=== PATIENT | female | born 1950 | race Caucasian/White ===

== ENCOUNTER 2017-04-20 23:58 | Inpatient (IN) | payer BC, OTHER ==
[2017-04-21 00:22] VITALS: BMI 21.1
[2017-04-21] MEDS ORDERED: SODIUM CHLORIDE 1,000 ML IV STA ×2 (01:27→03:20)
--- NOTE | 2017-04-21 01:32 | PDOC ---
History of Present Illness - General History Source: Patient Exam Limitations: No Limitations - History of Present Illness Initial Comments: 04/21/17 01:46 The patient is a 67 year old female with a significant PMH of ulcerative colitis status post jpouch with inability to pull-though (has anastamosis to RLQ , pt uses catheter) with recurrent small bowel obstruction 2/2 intestinal stricture near operative site who presents to the emergency department with crampy abdominal pain and bloating today c/w prior episodes of SBO. The patient states these symptoms happens intermittently when she is dehydrated and usually resolve on its own or after IV fluids. The patient reports she was discharged from [place] from 2 weeks ago for similar symptoms. The patient denies chest pain, shortness of breath, headache and dizziness. Denies fever, chills, nausea, vomit, diarrhea and constipation. Denies dysuria, frequency, urgency and hematuria. Allergies: NKA Past surgical history: jpouch placement Social history: No reported alcohol, drug or cigarette use. PCP: Dr. Fraire <Santa Jain - Last Filed: 04/21/17 01:46> <Cammie Silverio - Last Filed: 04/21/17 05:54> - General Chief Complaint: Pain Stated Complaint: STOMACH PAIN Time Seen by Provider: 04/21/17 01:17 Past History <Santa Jain - Last Filed: 04/21/17 01:46> - Past Medical History COPD: No GI Disorders: Yes (ULCERATIVE COLITIS) - Surgical History Abdominal Surgery: Yes (ILIOSTOMY KOUCH POUCH) - Suicide/Smoking/Psychosocial Hx Smoking History: Never smoked Have you smoked in the past 12 months: No Information on smoking cessation initiated: No Hx Alcohol Use: No Drug/Substance Use Hx: No Substance Use Type: None <Cammie Silverio - Last Filed: 04/21/17 05:54> - Past Medical History Allergies/Adverse Reactions: Allergies Allergy/AdvReac Type Severity Reaction Status Date / Time No Known Drug Allergies Allergy Verified 04/21/17 00:19 tetracycline [Tetracycline] AdvReac Intermediate Verified 04/21/17 00:19 Review of Systems - Review of Systems Able to Perform ROS?: Yes Comments:: 04/21/17 01:47 See HPI. All other systems reviewed and unremarkable. <Santa Jain - Last Filed: 04/21/17 01:46> *Physical Exam - Vital Signs Last Vital Signs Temp Pulse Resp BP Pulse Ox 97.8 F 85 20 140/71 96 04/21/17 00:19 04/21/17 00:19 04/21/17 00:19 04/21/17 00:19 04/21/17 00:19 - Physical Exam Comments: 04/21/17 01:47 GENERAL: Awake, alert, and fully oriented, in no acute distress HEENT: EOMI, GERARD MMM, OP WNL NECK: NCAT, no midline cervical tenderness CARDIOVASCULAR: RRR, nl s1/s2, no m/r/g LUNGS: CTABL, no w/r/r ABDOMEN: Soft, diffuse lower abd ttp w/ voluntary guarding, no rebound. Catherization site c/d/i, no erythema/exudate. EXTREMITIES: No edema, WWP, no rash NEURO: Neuro grossly intact, gait WNL, moving all 4. A&O x 3, mood/affect WNL. SKIN: Warm, Dry, normal turgor, no rashes or lesions noted. <Santa Jain - Last Filed: 04/21/17 01:46> - Vital Signs Last Vital Signs Temp Pulse Resp BP Pulse Ox 97.8 F 85 20 140/71 96 04/21/17 00:19 04/21/17 00:19 04/21/17 00:19 04/21/17 00:19 04/21/17 00:19 <Cammie Silverio - Last Filed: 04/21/17 05:54> ED Treatment Course - LABORATORY CBC & Chemistry Diagram: 04/21/17 02:05 04/21/17 02:05 - RADIOLOGY Radiology Studies Ordered: Category Date Time Status ABDOMEN FLAT & UPRIGHT [RAD] Stat Radiology 04/21/17 01:27 Ordered <Cammie Silverio - Last Filed: 04/21/17 05:54> Medical Decision Making - Medical Decision Making 04/21/17 01:28 67yoF hx of ulcerative colitis s/p jpouch w/ inability to pull-though (has anastamosis to RLQ and pt catheterizes for stool) w/ hx of recurrent SBO from intestinal stricture near operative site presents w/ sxs concerning for same. DC 'ed 2 weeks ago from [facility] for same. Usually responds to conservative management. - labs - AXR - IVF - reeval. 04/21/17 05:54 AXR w/ SBO. admit. <Cammie Silverio - Last Filed: 04/21/17 05:54> *DC/Admit/Observation/Transfer - Attestations Scribe Attestion: 04/21/17 01:48 Documentation prepared by Santa Jain, acting as medical biller for Cammie Silverio MD. <Santa Jain - Last Filed: 04/21/17 01:46> - Discharge Dispostion Admit: Yes <Cammie Silverio - Last Filed: 04/21/17 05:54> - Discharge Dispostion Condition at time of disposition: Stable - Referrals Referrals: Jose Daniel Gross MD [Primary Care Provider] - - Patient Instructions - Post Discharge Activity
[2017-04-21 02:21] LABS: BASO % 0.7 % (0-2.0); EOS % 1.1 % (0-4.5); HEMATOCRIT 41.1 % (32.4-45.2); HEMOGLOBIN 13.6 GM/dL (10.7-15.3); LYMPH % 16.7 % (8-40); MCH 30.8 pg (25.7-33.7); MCHC 33.1 g/dl (32.0-36.0); MEAN PLT VOLUME 9.9 fl (7.5-11.1); MONO % 9.2 % (3.8-10.2); NEUT % 72.3 % (42.8-82.8); PLATELET COUNT 204 K/MM3 (134-434); RBC 4.42 M/mm3 (3.60-5.2); RDW 13.6 % (11.6-15.6); WHITE BLOOD COUNT 7.3 K/mm3 (4.0-10.0)
[2017-04-21 02:46] LABS: ALBUMIN 3.4 g/dl (3.4-5.0); ALK PHOS 69 U/L (45-117); ANION GAP 7 (8-16); BILIRUBIN,TOTAL 0.7 mg/dL (0.2-1.0); BLOOD UREA NITROGEN 8 mg/dL (7-18); CALCIUM 9.5 mg/dL (8.5-10.1); CHLORIDE 108 mmol/L (98-107); CO2 28 mmol/L (21-32); CREATININE 0.5 mg/dL (0.55-1.02); GLUCOSE,RANDOM 94 mg/dL (74-106); SGPT/ALT 22 U/L (12-78); SODIUM 143 mmol/L (136-145); TOT PROT 6.8 g/dl (6.4-8.2)
[2017-04-21 02:47] LABS: POTASSIUM 4.2 mmol/L (3.5-5.1); SGOT/AST 25 U/L (15-37)
--- NOTE | 2017-04-21 06:42 | HP ---
Admitting History and Physical - Primary Care Physician PCP: Jose Daniel Gross - Admission Chief Complaint: abdominal discomfort History of Present Illness: 67 yo lady with h/o total colectomy for ulcerative colitis 30 years ago with ileal pouch long h/o intermittent partial bowel obstruction and associated dehydration which were handled conservatively with iv fluid and bowel rest has had specialist in [place] but was unable to afford him, currently looking for new. was admitted to [facility] 3 weeks ago for similar complaints, dcd after five days, but her bowels never really normalized afterwards now she comes in with increasing abdominal discomfort loss of appetite and minimal output from pouch, mostly mucous. History Source: Patient Limitations to Obtaining History: No Limitations - Past Medical History Gastrointestinal: Yes: Ulcerative Colitis - Past Surgical History Past Surgical History: Yes: Colectomy (total colectomy with jo puch creation approx.30 yrs ago), Tonsillectomy - Smoking History Smoking history: Never smoked Have you smoked in the past 12 months: No - Alcohol/Substance Use Hx Alcohol Use: No - Social History ADL: Independent History of Recent Travel: No Home Medications - Allergies Allergies/Adverse Reactions: Allergies Allergy/AdvReac Type Severity Reaction Status Date / Time No Known Drug Allergies Allergy Verified 04/21/17 00:19 tetracycline [Tetracycline] AdvReac Intermediate Verified 04/21/17 00:19 Family Disease History - Family Disease History Family Disease History: Heart Disease: Mother (HTN) Review of Systems - Review of Systems Constitutional: reports: Loss of Appetite. denies: Fever, Lethargy HENT: reports: No Symptoms Cardiovascular: reports: No Symptoms Respiratory: reports: PND Gastrointestinal: reports: Abdominal Pain, Bloating, Other (usually uses catheter to releive herself, with minimal output last couple days) Genitourinary: reports: No Symptoms Musculoskeletal: reports: No Symptoms Neurological: reports: No Symptoms Physical Examination Vital Signs: Vital Signs Temperature 97.8 F 04/21/17 00:19 Pulse Rate 85 04/21/17 00:19 Respiratory Rate 20 04/21/17 00:19 Blood Pressure 140/71 04/21/17 00:19 O2 Sat by Pulse Oximetry (%) 96 04/21/17 00:19 Constitutional: Yes: Well Nourished, No Distress, Calm Eyes: Yes: Conjunctiva Clear HENT: Yes: Normocephalic, Other (dry mouth) Cardiovascular: Yes: Regular Rate and Rhythm Respiratory: Yes: Regular, CTA Bilaterally Gastrointestinal: Yes: Normal Bowel Sounds, Hyperactive Bowel Sounds, Tenderness (diffuse mild, no rebound, no guarding), Other (pouch opening no eryhtema, no discharge) Musculoskeletal: Yes: WNL Extremities: Yes: WNL Labs: CBC, BMP 04/21/17 02:05 04/21/17 02:05 Imaging - Results X-ray: Image Reviewed Problem List - Problems (1) Intermittent small bowel obstruction Code(s): K56.609 - UNSP INTESTNL OBST, UNSP TO PARTIAL VERSUS COMPLETE OBST Assessment/Plan hopefully will resolve with conservative management iv fluids keep NPO iv levaquin GI/surgical eval check stool cultures
[2017-04-21] MEDS: D5-1/2NS+10 MEQ KCL - 10 MEQ/1,000 ML INFUS.BAG IV SCH ×2 (10:06→23:29)
--- NOTE | 2017-04-21 12:05 | CON.GI ---
Consult Consult Specialty:: GI: Dr. Lopes coveing for Dr. Sparks Referred by:: Dr. Maggie Gross Reason for Consultation:: Small Bowel Obstruction - History of Present Illness Chief Complaint: Abdominal Pain History of Present Illness: 67F admitted for evaluation of mid abdominal pain. She has a history of ulcerative colitis, followed previously at [facility] by Dr. Gee Shelton. She had a total proctocolectomy with Kock pouch "many years ago". last endoscopic evaluation of Kock pouch [address] Aguilar Recently admitted for [facility] for SBO per ER note and H&P. Treated conservativly. Ms. Viramontes states that she has had similar episodes in the past, has been told of a "scar where they created the kock pouch" but has never had revisionary surgery. She says that she passes a catheter through the stoma of the kock pouch to facilitate bowel movements and this last occurred yesterday. She denies nausea/vomiting. Triage vitals revealed T: 97.8 P: 85 BP : 140/71. AXR was performed revealing ? SBO. - History Source History Provided By: Patient, Medical Record Limitations to Obtaining History: No Limitations - Past Medical History Gastrointestinal: Yes: Ulcerative Colitis - Past Surgical History Past Surgical History: Yes: Colectomy (total colectomy with kock puch creation approx.30 yrs ago), Tonsillectomy - Alcohol/Substance Use Hx Alcohol Use: No History of Substance Use: reports: None - Smoking History Smoking history: Never smoked Have you smoked in the past 12 months: No - Social History Usual Living Arrangement: With Spouse ADL: Independent Occupation: Retired: worked in [employer] Place of : Other ([place]) Came to [place] (year[place] age 23 History of Recent Travel: No Home Medications - Allergies Allergies/Adverse Reactions: Allergies Allergy/AdvReac Type Severity Reaction Status Date / Time No Known Drug Allergies Allergy Verified 04/21/17 00:19 tetracycline [Tetracycline] AdvReac Intermediate Verified 04/21/17 00:19 Family Disease History - Family Disease History Family Disease History: Heart Disease: Mother (: 87: CVA, HTN), Other: Father (: 74: Stomach cancer), Brother (1, healthy), Sister (1, healthy), Son (None), Daughter (None) Other Family History: No family history of colorectal cancer Review of Systems - Review of Systems Constitutional: denies: Chills Cardiovascular: denies: Chest Pain Respiratory: denies: SOB Gastrointestinal: reports: Abdominal Pain, Bloating, Diarrhea (generally has loose bowel movements). denies: Constipation, Dysphagia, Indigestion, Nausea, Vomiting, Vomiting Blood Physical Exam-GI Vital Signs: Vital Signs Temperature 98 F 04/21/17 07:50 Pulse Rate 93 H 04/21/17 09:36 Respiratory Rate 18 04/21/17 11:00 Blood Pressure 149/99 04/21/17 09:36 O2 Sat by Pulse Oximetry (%) 98 04/21/17 11:00 Constitutional: Yes: Calm Eyes: No: Sclera Icterus Cardiovascular: Yes: Regular Rate and Rhythm Respiratory: Yes: CTA Bilaterally Gastrointestinal Inspection: Yes: Distention (protuberant), Scars (midline abdominal scar. + stoma in right mid/lower abdomen.) ...Auscultate: Yes: Normoactive Bowel Sounds ...Palpate: Yes: Soft, Tenderness (Mild TTP mid abdomen). No: Hepatomegaly, Splenomegaly, Tenderness, Rebound ...Percussion: Yes: Tympanitic (Mild mid abdominal tympany) Edema: No (No LE edema) Neurological: Yes: Alert, Oriented Labs: CBC, BMP 04/21/17 02:05 04/21/17 02:05 Hepatic Panel Total Bilirubin 0.7 mg/dL (0.2-1.0) 04/21/17 02:05 AST 25 U/L (15-37) 04/21/17 02:05 ALT 22 U/L (12-78) 04/21/17 02:05 Alkaline Phosphatase 69 U/L (45-117) 04/21/17 02:05 Albumin 3.4 g/dl (3.4-5.0) 04/21/17 02:05 Imaging - Results X-ray: Report Reviewed Problem List - Problems (1) Intermittent small bowel obstruction Assessment/Plan: By Ms. Viramontes's descrition of what has caused her intermittent obstructions in the past stenosis / stricturing of the internal anastamosis of her kock pouch would need to be considered as causative process in the differential along with other etiologioes such as adhesions She is NPO with IV hydration and was being evaluated by Dr. Ross of surgery I have ordered a CT scan of the abdomen and pelvis with PO and IV contrast. If there are signs suggestive of significant SBO, consideration should be given for transfer to her IBD center [facility] for evaluation and further treatment. If her clinical condition improves with conservative management, she will need outpatient follow-up at [facility] for continued evaluation. Her has already called Dr. Shelton's office to arrange outpatient follow-up. If vomiting, worsening abdominal tube, would consider NGT placement Code(s): K56.609 - UNSP INTESTNL OBST, UNSP TO PARTIAL VERSUS COMPLETE OBST
--- NOTE | 2017-04-21 16:01 | PN ---
Progress Note (short form) - Note Progress Note: For Dr. Sparks Nurse called: Ms. Viramontes refused CT scan when gdown in radiology. I spoke with both her and phone via telephone today. They expressed concern about having another CT scan as she had one two weeks ago at [facility]. The also brought the disc with CT scan result from [place]. I explained that not having her previous work-up here and having most of her medical care at [facility], A repeat CT scan would be prudent to 1. compare results from previous CT scan ie. eval for progession of SBO as an example and 2. To exclude alternate etiologies of her abdominal pain. I explained by not having current imaging, I am limited as to what I can comment on or recommend regarding her abdominal pain and previous diagnosis of ? SBO and that this can hinder her care and disposition. They were made aware that progressive small bowel obstruction or alternate pathology could be potentially life threatening. After discussion they stll refused the CT scan. I discussed this decision with Dr. Maggie Gross who would told me she would discuss things further with the patient and her . Problem List - Problems (1) Intermittent small bowel obstruction Code(s): K56.609 - UNSP INTESTNL OBST, UNSP TO PARTIAL VERSUS COMPLETE OBST
--- NOTE | 2017-04-21 16:07 | CONSULT ---
Consult Consult Specialty:: Surgery Reason for Consultation:: Rule out bowel obstruction - History of Present Illness Chief Complaint: Abdominal cramping - History Source History Provided By: Patient, Medical Record Limitations to Obtaining History: No Limitations - Past Medical History Gastrointestinal: Yes: Ulcerative Colitis - Past Surgical History Past Surgical History: Yes: Colectomy (total colectomy with kock puch creation approx.30 yrs ago), Tonsillectomy - Alcohol/Substance Use Hx Alcohol Use: No History of Substance Use: reports: None - Smoking History Smoking history: Never smoked Have you smoked in the past 12 months: No - Social History Usual Living Arrangement: With Spouse ADL: Independent Occupation: Retired: worked in research lab for [employer] History of Recent Travel: No Home Medications - Allergies Allergies/Adverse Reactions: Allergies Allergy/AdvReac Type Severity Reaction Status Date / Time No Known Drug Allergies Allergy Verified 04/21/17 00:19 tetracycline [Tetracycline] AdvReac Intermediate Verified 04/21/17 00:19 Family Disease History - Family Disease History Family Disease History: Heart Disease: Mother (: 87: CVA, HTN), Other: Father (: 74: Stomach cancer), Brother (1, healthy), Sister (1, healthy), Son (None), Daughter (None) Other Family History: No family history of colorectal cancer Review of Systems - Review of Systems Constitutional: denies: Chills, Fever Neck: reports: No Symptoms Gastrointestinal: reports: Abdominal Pain. denies: Diarrhea, Dysphagia Pain Intensity: 3 Physical Exam Vital Signs: Vital Signs Temperature 97.8 F 04/21/17 14:31 Pulse Rate 79 04/21/17 14:31 Respiratory Rate 18 04/21/17 11:00 Blood Pressure 114/60 04/21/17 14:31 O2 Sat by Pulse Oximetry (%) 98 04/21/17 11:00 Neck: Yes: WNL Cardiovascular: Yes: WNL Respiratory: Yes: Regular Gastrointestinal: Yes: Soft, Distention (Minimal). No: Tenderness, Tenderness, Rebound Neurological: Yes: Alert, Oriented Labs: CBC, BMP 04/21/17 02:05 04/21/17 02:05 Imaging - Results X-ray: Report Reviewed, Image Reviewed Cat Scan: Pending Problem List - Problems (1) Intermittent small bowel obstruction Code(s): K56.609 - UNSP INTESTNL OBST, UNSP TO PARTIAL VERSUS COMPLETE OBST Assessment/Plan 67 female s/p total colectomy with ileal pouch in the past Has had intermiitent episodes of bowel obstruction Recently at [facility] Tolerating diet +Output via ileal pouch CT A/P Serial abdominal exams
--- NOTE | 2017-04-22 07:33 | PN ---
Progress Note (short form) - Note Progress Note: Feels better, moving some bowel material, hungry Vital Signs Period Temp Pulse Resp BP Sys/Sawant Pulse Ox Last 24 Hr 97.5 F-98.5 F 74-93 14-20 112-149/60-99 98-98 S1S2 RRR lungs cta abd soft mild tenderness, no rebound, no guarding no edema small bowel obstruction h/o colectomy with pouch trial of liquids cont iv fluids will follow consults appreciated pt does not want ct at this point, agreed that should condition worsen will reconsider Problem List - Problems (1) Intermittent small bowel obstruction Code(s): K56.609 - UNSP INTESTNL OBST, UNSP TO PARTIAL VERSUS COMPLETE OBST
[2017-04-22 08:15] LABS: BASO % 0.3 % (0-2.0); EOS % 2.7 % (0-4.5); HEMATOCRIT 39.7 % (32.4-45.2); HEMOGLOBIN 13.2 GM/dL (10.7-15.3); MCH 30.9 pg (25.7-33.7); MCHC 33.2 g/dl (32.0-36.0); MEAN PLT VOLUME 9.4 fl (7.5-11.1); MONO % 10.1 % (3.8-10.2); NEUT % 55.9 % (42.8-82.8); PLATELET COUNT 185 K/MM3 (134-434); RBC 4.26 M/mm3 (3.60-5.2); RDW 13.7 % (11.6-15.6); WHITE BLOOD COUNT 6.2 K/mm3 (4.0-10.0)
[2017-04-22 08:34] LABS: ALBUMIN 3.1 g/dl (3.4-5.0); ANION GAP 11 (8-16); BLOOD UREA NITROGEN 5 mg/dL (7-18); CALCIUM 8.7 mg/dL (8.5-10.1); CHLORIDE 106 mmol/L (98-107); CO2 25 mmol/L (21-32); GLUCOSE,RANDOM 110 mg/dL (74-106); POTASSIUM 3.9 mmol/L (3.5-5.1); SODIUM 142 mmol/L (136-145)
[2017-04-22 08:38] LABS: ALK PHOS 62 U/L (45-117); BILIRUBIN,TOTAL 1.1 mg/dL (0.2-1.0); CREATININE 0.6 mg/dL (0.55-1.02); SGOT/AST 15 U/L (15-37); SGPT/ALT 16 U/L (12-78); TOT PROT 6.2 g/dl (6.4-8.2)
[2017-04-22] MEDS: D5-1/2NS+10 MEQ KCL - 10 MEQ/1,000 ML INFUS.BAG IV SCH ×2 (11:10→21:17)
--- NOTE | 2017-04-22 12:55 | PN ---
GI Progress Note Subjective: GI NOte: Autumn tells me that she preferred her [place]'s ileostomy which was not prone to these episodes. She denies vomiting or pain but has some bloating discomfort. Agree with trial of liquids and would advance diet as tolerated. If her symptoms recurs I have advised an ileoscopy for Thursday. If she improves then she can be discharged and followup in our office. - Objective Vital Signs: Vital Signs Temperature 97.7 F 04/22/17 08:00 Pulse Rate 70 04/22/17 08:00 Respiratory Rate 04/22/17 08:00 Blood Pressure 141/75 04/22/17 08:00 O2 Sat by Pulse Oximetry (%) 97 04/22/17 09:00 Laboratory Tests 04/22/17 04/22/17 06:45 06:45 WBC 6.2 BUN 5 L Creatinine 0.6 Albumin 3.1 L Constitutional: Calm Gastrointestinal Inspection: Yes: Distention (soft) ...Auscultate: Yes: Hyperactive Bowel Sounds ...Palpate: Yes: Soft, Other (nontender) ...Percussion: Yes: Tympanitic Labs: CBC, BMP 04/22/17 06:45 04/22/17 06:45 Problem List - Problems (1) Pouchitis Assessment/Plan: Resolving pouchitis and obstruction. Advance diet as tolerated. If pain worsens will schedule ileoscopy Code(s): K91.850 - POUCHITIS
[2017-04-23] MEDS: D5-1/2NS+10 MEQ KCL - 10 MEQ/1,000 ML INFUS.BAG IV SCH ×2 (07:11→17:49)
--- NOTE | 2017-04-23 08:41 | PN ---
Progress Note (short form) - Note Progress Note: Feels better, moving some bowel material, some discomfort with clear liquids Vital Signs Period Temp Pulse Resp BP Sys/Sawant Pulse Ox Last 24 Hr 97.9 F-98.4 F 66-86 18-20 104-134/66-83 97-98 S1S2 RRR lungs cta abd soft minimal tenderness, no rebound, no guarding no edema small bowel obstruction h/o colectomy with pouch continue liquids cont iv fluids advance diet little later consults appreciated pt does not want ct at this point, agreed that should condition worsen will reconsider Problem List - Problems (1) Intermittent small bowel obstruction Code(s): K56.609 - UNSP INTESTNL OBST, UNSP TO PARTIAL VERSUS COMPLETE OBST
--- NOTE | 2017-04-23 09:36 | PN ---
GI Progress Note Subjective: For Dr. Sparks: States feeling ok. some cramps and describes liquid stool with particles coming from ileostomy when she catheterizes it. CT scan report from [facility]: 04/06/17: S/P total colectomy w/ RLQ ileostomyand kock pouch. Proximal to pouch = multiple dilated loops of small bowel c/w SBO. A transition point in the mid/lower abdomen described proximal to the kock pouch. Tolerating clears - Objective Vital Signs: Vital Signs Temperature 98.2 F 04/23/17 08:00 Pulse Rate 72 04/23/17 08:00 Respiratory Rate 18 04/23/17 08:00 Blood Pressure 119/66 04/23/17 08:00 O2 Sat by Pulse Oximetry (%) 98 04/23/17 08:40 Constitutional: Calm Eyes: No: Sclera Icterus Cardiovascular: Yes: Regular Rate and Rhythm Respiratory: Yes: CTA Bilaterally Gastrointestinal Inspection: No: Distention ...Auscultate: Yes: Normoactive Bowel Sounds ...Palpate: Yes: Soft, Tenderness (Mild TTP mid/lower abdomen, no guarding/ rebound) ...Percussion: No: Tympanitic Edema: No (No LE edema) Neurological: Yes: Alert, Oriented Labs: CBC, BMP 04/22/17 06:45 04/22/17 06:45 - ....Imaging Cat Scan: Report Reviewed (Report of CT scan 04/06/17 performed at [facility]) Problem List - Problems (1) Intermittent small bowel obstruction Assessment/Plan: SBO. ? if related to adhesions from surgery (transition point described as proximal to kock pouch in mid/lower abdomen) Continue clears Patient refused repeat CT scan to assess for progression of SBO On IV Abx for ? pouchitis. NPO after midnight for possible ileoscopy. Ms. Viramontes said that she would see how she feels and think about it tomorrow morning before making decision. NPO after midnight Code(s): K56.609 - UNSP INTESTNL OBST, UNSP TO PARTIAL VERSUS COMPLETE OBST
--- NOTE | 2017-04-23 13:22 | PN ---
Progress Note (short form) - Note Progress Note: No acute events Pain improves + output via ostomy Vital Signs Period Temp Pulse Resp BP Sys/Sawant Pulse Ox Last 24 Hr 97.9 F-98.4 F 66-86 18-20 104-134/66-83 98-98 Abd soft, NT CBC, BMP 04/22/17 06:45 04/22/17 06:45 Ileoscopy per GI Serial abdominal exams Problem List - Problems (1) Intermittent small bowel obstruction Code(s): K56.609 - UNSP INTESTNL OBST, UNSP TO PARTIAL VERSUS COMPLETE OBST
[2017-04-24] MEDS: D5-1/2NS+10 MEQ KCL - 10 MEQ/1,000 ML INFUS.BAG IV SCH ×3 (04:37→18:10)
[2017-04-24 07:23] LABS: BASO % 0.7 % (0-2.0); EOS % 3.5 % (0-4.5); HEMATOCRIT 39.1 % (32.4-45.2); LYMPH % 35.2 % (8-40); MCH 31.2 pg (25.7-33.7); MCHC 33.4 g/dl (32.0-36.0); MEAN CELL VOLUME 93.6 fl (80-96); MEAN PLT VOLUME 9.2 fl (7.5-11.1); MONO % 10.7 % (3.8-10.2); NEUT % 49.9 % (42.8-82.8); PLATELET COUNT 184 K/MM3 (134-434); RBC 4.17 M/mm3 (3.60-5.2); RDW 13.4 % (11.6-15.6); WHITE BLOOD COUNT 4.8 K/mm3 (4.0-10.0)
[2017-04-24 07:51] LABS: ALBUMIN 3.5 g/dl (3.4-5.0); ANION GAP 7 (8-16); BLOOD UREA NITROGEN 5 mg/dL (7-18); CALCIUM 8.3 mg/dL (8.5-10.1); CHLORIDE 107 mmol/L (98-107); CO2 29 mmol/L (21-32); CREATININE 0.6 mg/dL (0.55-1.02); GLUCOSE,RANDOM 99 mg/dL (74-106); POTASSIUM 3.8 mmol/L (3.5-5.1); SGOT/AST 14 U/L (15-37); SGPT/ALT 15 U/L (12-78); SODIUM 143 mmol/L (136-145)
[2017-04-24 07:53] LABS: ALK PHOS 60 U/L (45-117); BILIRUBIN,TOTAL 0.7 mg/dL (0.2-1.0); TOT PROT 6.6 g/dl (6.4-8.2)
--- NOTE | 2017-04-24 09:09 | PN ---
Progress Note (short form) - Note Progress Note: CBC, BMP 04/24/17 06:57 04/24/17 06:57 Vital Signs Period Temp Pulse Resp BP Sys/Sawant Pulse Ox Last 24 Hr 97.9 F-99.4 F 68-81 18-21 116-133/62-79 97-98 S1S2 RRR lungs cta abd soft minimal tenderness, no rebound, no guarding no edema small bowel obstruction h/o colectomy with pouch NPO for ilieoscopy this am cont iv fluids advance diet after procedure depending results consults appreciated clyde deluca Problem List - Problems (1) Intermittent small bowel obstruction Code(s): K56.609 - UNSP INTESTNL OBST, UNSP TO PARTIAL VERSUS COMPLETE OBST
--- NOTE | 2017-04-24 16:57 | PN ---
Progress Note (short form) - Note Progress Note: GI Procedure Note: Please see ileoscopy report. There is pouchitis with narrowing of a short segment with was dilated with the scope. Will advance diet. If tolerated can discharge on Cortenemas BID ( until office visit) and Ciprofloxacin 500mg BID x 2 weeks. Problem List - Problems (1) Pouchitis Code(s): K91.850 - POUCHITIS
[2017-04-24] MEDS ORDERED: PT OWN MED DRAWER 7, Y5N ONE (17:52)
--- NOTE | 2017-04-24 18:05 | PN ---
Progress Note (short form) - Note Progress Note: No acute events S/p ileoscopy- pouchitis +BM Vital Signs Period Temp Pulse Resp BP Sys/Sawant Pulse Ox Last 24 Hr 97.8 F-98.8 F 68-84 14-21 116-152/62-90 97-99 CBC, BMP 04/24/17 06:57 04/24/17 06:57 Diet as tolerated Recommend follow up with IBD specialist at [place] Problem List - Problems (1) Intermittent small bowel obstruction Code(s): K56.609 - UNSP INTESTNL OBST, UNSP TO PARTIAL VERSUS COMPLETE OBST
[2017-04-24] MEDS ORDERED: HYDROCORTISONE 100 MG/60 ML RECTAL ENEMA RC SCH (22:00)
[2017-04-25] MEDS: D5-1/2NS+10 MEQ KCL - 10 MEQ/1,000 ML INFUS.BAG IV SCH (05:00)
[2017-04-25] MEDS ORDERED: CIPROFLOXACIN 500 MG TABLET (RESTRICTED TO ID) PO SCH (10:00)
--- NOTE | 2017-04-25 10:10 | PN ---
Progress Note (short form) - Note Progress Note: still unable to move the bm no abd pain weakness present Vital Signs Period Temp Pulse Resp BP Sys/Sawant Pulse Ox Last 24 Hr 97.8 F-98.4 F 66-84 14-20 103-152/46-90 97-99 CBC, BMP 04/24/17 06:57 04/24/17 06:57 S1S2 RRR lungs cta abd soft minimal tenderness, no rebound, no guarding no edema small bowel obstruction h/o colectomy with pouch NPO for ilieoscopy this am cont iv fluids
[2017-04-25] MEDS: HYDROCORTISONE 100 MG/60 ML RECTAL ENEMA RC SCH ×2 (10:24→21:29)
[2017-04-25] MEDS: POLYETHYLENE GLYCOL 3350 119 GM BTL PO SCH (10:24)
[2017-04-25] MEDS: POTASSIUM CHLORIDE 10 MEQ in DEXTROSE 5%-0.45% SALINE 1,000 ML IVPB SCH (17:07)
--- NOTE | 2017-04-25 19:42 | PN ---
Progress Note (short form) - Note Progress Note: No acute events Increased output via ostomy after dilation On diet Vital Signs Period Temp Pulse Resp BP Sys/Sawant Pulse Ox Last 24 Hr 97.8 F-98.6 F 66-82 16-20 103-149/46-72 99-99 Abd soft CBC, BMP 04/24/17 06:57 04/24/17 06:57 Diet as tolerated Problem List - Problems (1) Intermittent small bowel obstruction Code(s): K56.609 - UNSP INTESTNL OBST, UNSP TO PARTIAL VERSUS COMPLETE OBST
[2017-04-25] MEDS ORDERED: PT OWN MED DRAWER 7, Y5N ONE (21:15)
[2017-04-26] MEDS: POTASSIUM CHLORIDE 10 MEQ in DEXTROSE 5%-0.45% SALINE 1,000 ML IVPB SCH ×5 (03:49→21:43)
[2017-04-26] MEDS ORDERED: PT OWN MED DRAWER 7, Y5N ONE (09:45)
[2017-04-26] MEDS: POLYETHYLENE GLYCOL 3350 119 GM BTL PO SCH (09:46)
[2017-04-26] MEDS: HYDROCORTISONE 100 MG/60 ML RECTAL ENEMA RC SCH ×2 (09:47→21:43)
--- NOTE | 2017-04-26 12:09 | PN ---
Progress Note (short form) - Note Progress Note: still unable to move the bm no abd pain weakness present Vital Signs Vital Signs Period Temp Pulse Resp BP Sys/Sawant Pulse Ox Last 24 Hr 98.1 F-98.6 F 61-82 16-20 111-146/59-76 98-99 CBC, BMP 04/24/17 06:57 04/24/17 06:57 S1S2 RRR lungs cta abd soft minimal tenderness, no rebound, no guarding no edema small bowel obstruction h/o colectomy with pouch NPO for ilieoscopy this am cont iv fluids
[2017-04-27] MEDS: POTASSIUM CHLORIDE 10 MEQ in DEXTROSE 5%-0.45% SALINE 1,000 ML IVPB SCH ×4 (05:41→17:42)
--- NOTE | 2017-04-27 08:56 | PN ---
Progress Note (short form) - Note Progress Note: 04/24/17 06:57 04/24/17 06:57 Vital Signs Period Temp Pulse Resp BP Sys/Sawant Pulse Ox Last 24 Hr 98 F-98.3 F 73-103 18-20 105-130/59-75 96 S1S2 RRR lungs cta abd soft no tenderness, no rebound, no guarding no edema small bowel obstruction h/o colectomy with pouch ileoscopy showed pouchitis and stricture, s/p dilation check lytes on regular diet po levaquin cortenema miralax Problem List - Problems (1) Intermittent small bowel obstruction Code(s): K56.609 - UNSP INTESTNL OBST, UNSP TO PARTIAL VERSUS COMPLETE OBST
[2017-04-27] MEDS ORDERED: PT OWN MED DRAWER 7, Y5N ONE (09:56)
[2017-04-27 09:59] LABS: BASO % 0.6 % (0-2.0); EOS % 1.1 % (0-4.5); HEMATOCRIT 35.1 % (32.4-45.2); LYMPH % 26.3 % (8-40); MCH 31.6 pg (25.7-33.7); MCHC 34.1 g/dl (32.0-36.0); MEAN CELL VOLUME 92.7 fl (80-96); MEAN PLT VOLUME 9.5 fl (7.5-11.1); MONO % 11.8 % (3.8-10.2); NEUT % 60.2 % (42.8-82.8); PLATELET COUNT 160 K/MM3 (134-434); RBC 3.79 M/mm3 (3.60-5.2); RDW 13.7 % (11.6-15.6); WHITE BLOOD COUNT 5.8 K/mm3 (4.0-10.0)
[2017-04-27] MEDS: POLYETHYLENE GLYCOL 3350 119 GM BTL PO SCH (09:59)
[2017-04-27] MEDS: HYDROCORTISONE 100 MG/60 ML RECTAL ENEMA RC SCH (09:59)
[2017-04-27 10:32] LABS: ALBUMIN 3.1 g/dl (3.4-5.0); ANION GAP 7 (8-16); BLOOD UREA NITROGEN 10 mg/dL (7-18); CALCIUM 8.1 mg/dL (8.5-10.1); CHLORIDE 107 mmol/L (98-107); CO2 28 mmol/L (21-32); CREATININE 0.5 mg/dL (0.55-1.02); GLUCOSE,RANDOM 87 mg/dL (74-106); POTASSIUM 3.6 mmol/L (3.5-5.1); SGOT/AST 19 U/L (15-37); SGPT/ALT 23 U/L (12-78); SODIUM 142 mmol/L (136-145)
[2017-04-27 10:33] LABS: ALK PHOS 61 U/L (45-117); BILIRUBIN,TOTAL 0.4 mg/dL (0.2-1.0); TOT PROT 5.8 g/dl (6.4-8.2)
--- NOTE | 2017-04-27 10:35 | PATH ---
Surgical Pathology Report Patient Name: KELLI STEPHENS [facility]. Rec. #: [id number] /Age/Gender: 1950 (Age: 67) / F Account: [id number] Location: [address] [place] [address]/[facility] Taken: 04/24/2017 Received: 04/24/2017 Reported: 04/27/2017 Physicians: Jaja Barone M.D. Specimen(s) Received A: ANASTOMOSIS BIOPSY B: BX OSTOMY C: BX ILEUM 25 CM D: BX POUCH Clinical History Preoperative diagnosis: Small bowel obstruction status post ileostomy Postoperative diagnosis: Riwin's ileostomy for ulcerative colitis, rule out pouchitis Final Diagnosis A. COLON, ANASTOMOSIS, BIOPSY: COLONIC AND SMALL INTESTINAL MUCOSA WITH ULCERATION. NO DYSPLASIA IDENTIFIED. B. OSTOMY POSTANASTOMOSIS, BIOPSY: SMALL INTESTINAL MUCOSA WITH LAMINA PROPRIA EDEMA. NO ACTIVE INFLAMMATION, GRANULOMA, OR DYSPLASIA IDENTIFIED. C. ILEUM, 25 CM, BIOPSY: SMALL INTESTINAL MUCOSA WITH NO PATHOLOGIC CHANGES. NO ACTIVE INFLAMMATION, ARCHITECTURAL DISTORTION, GRANULOMAS, OR DYSPLASIA IDENTIFIED. D. ILEAL POUCH, BIOPSY: SMALL INTESTINAL MUCOSA WITH LAMINA PROPRIA EDEMA, AND PORTION OF ULCER BED. NO ARCHITECTURAL DISTORTION, GRANULOMA, OR DYSPLASIA IDENTIFIED. Comment: Recommend correlation with clinical findings and follow up as clinically indicated. Electronically Signed Carroll Lopez M.D. Gross Description A. Received in formalin, labeled "biopsy anastomosis" are 2 hernandez, irregular portions of soft tissue measuring 0.2 and 0.6 cm. in greatest dimension. The specimens are submitted in toto in one cassette. B. Received in formalin, labeled "biopsy ostomy" are 2 hernandez, irregular portions of soft tissue averaging 0.1 cm. in greatest dimension. The specimens are submitted in toto in one cassette. C. Received in formalin, labeled "biopsy ileum 25 cm" is a hernandez, irregular portion of soft tissue measuring 0.3 cm. in greatest dimension. The specimen is submitted in toto in one cassette. D. Received in formalin, labeled "biopsy pouch" are 2 hernandez, irregular portions of soft tissue averaging 0.4 cm. in greatest dimension. The specimens are submitted in toto in one cassette. 04/24/2017 saudi04/24/2017
--- NOTE | 2017-04-27 12:12 | PN ---
Progress Note (short form) - Note Progress Note: No acute events On diet + ostomy output Vital Signs Period Temp Pulse Resp BP Sys/Sawant Pulse Ox Last 24 Hr 98 F-98.3 F 73-103 18-20 105-130/59-75 96-98 Abd soft CBC, BMP 04/27/17 09:30 04/27/17 09:30 Diet as tolerated Problem List - Problems (1) Intermittent small bowel obstruction Code(s): K56.609 - UNSP INTESTNL OBST, UNSP TO PARTIAL VERSUS COMPLETE OBST
[2017-04-27 15:25] VITALS: BP 135/76; PULSE 80; TEMP 98.4
--- NOTE | 2017-04-29 08:28 | DS ---
Physical Examination Vital Signs: Vital Signs Temperature 98.4 F 04/27/17 15:23 Pulse Rate 80 04/27/17 15:23 Respiratory Rate 18 04/27/17 15:23 Blood Pressure 135/76 04/27/17 15:23 O2 Sat by Pulse Oximetry (%) 98 04/27/17 09:00 Constitutional: Yes: No Distress, Calm Eyes: Yes: EOM Intact HENT: Yes: Normocephalic Neck: Yes: Trachea Midline Cardiovascular: Yes: Regular Rate and Rhythm Respiratory: Yes: CTA Bilaterally Gastrointestinal: Yes: Normal Bowel Sounds, Soft Edema: No Peripheral Pulses WNL: Yes Labs: CBC, BMP 04/27/17 09:30 04/27/17 09:30 Discharge Summary Reason For Visit: SMALL BOWEL OBSTRUCTION Hospital Course: admitted for abdominal pain and small bowel obstruction on xray refused CT imaging, it was done 3 weeks prior to admission at [facility] , reading was reviewed. kept NPO on iv fluids and iv levaquin. ileoscopy showed pouchitis and stricture-was dilated. after procedure tolerating regular diet, pain resolved, moving bowels stable to il home with outpt gi f/up and oral cipro, and coertenema Condition: Stable - Instructions Referrals: Kwadwo Sparks MD [Staff Physician] - Jose Daniel Gross MD [Primary Care Provider] - Disposition: HOME - Home Medications Comprehensive Discharge Medication List: Ambulatory Orders Ciprofloxacin [Cipro -] 500 mg PO Q12H #28 tablet 04/27/17 Hydrocortisone [Cortenema] 100 mg RC BID #20 enema 04/27/17 Polyethylene Glycol 3350 [Miralax 119 gm Btl -] 17 gm PO DAILY #1 bottle
== END 2017-04-27 21:02 | disposition home or self-care (01) | DRG 389 ==
LOC: JER 23:58 → JERBED 04-21 05:54 → UNDOADMIN 04-21 06:13 → JERBED 04-21 06:13 → J6S 04-21 09:17
PROVIDERS: ADMIT Internal Medicine; ATTEND Internal Medicine
PROC: 0DDB8ZX Extraction of Ileum, Via Natural or Artificial Opening Endoscopic, Diagnostic (ICD-10-PCS; principal; 2017-04-24 14:45)
DX: K56.699 Other intestinal obstruction unspecified as to partial versus complete obstruction (principal); K91.850 Pouchitis; K63.3 Ulcer of intestine; Y83.2 Surgical operation with anastomosis, bypass or graft as the cause of abnormal reaction of the patient, or of later complication, without mention of misadventure at the time of the procedure; E86.0 Dehydration; Z93.2 Ileostomy status; Z90.49 Acquired absence of other specified parts of digestive tract
CPT/HCPCS: 36415; 74019-TC-FY; 80053; 85025; 87045; 87046; 87186; 87324; 87449; 88305-TC; 99283-25

== ENCOUNTER 2019-11-08 03:23 | Observation (INO) | payer BC ==
--- NOTE | 2019-11-08 03:35 | PDOC ---
Attending Attestation - Resident Resident Name: Lee Alarcon - ED Attending Attestation I have performed the following: I have examined & evaluated the patient, The case was reviewed & discussed with the resident, I agree w/resident's findings & plan - HPI HPI: 11/08/19 03:53 see resident hpi - Physicial Exam PE: 11/08/19 03:54 see resident exam - Medical Decision Making 11/08/19 04:01 69-year-old female with history of bowel obstruction status post colectomy secondary to ulcerative colitis now with manual ostomy in place complaining of abdominal pain Patient refusing CT scan but agrees to plain films to rule out obstruction Plan for labs, imaging and likely admission for further evaluation by GI and surgery as needed Discharge - Discharge Information Problems reviewed: Yes Clinical Impression/Diagnosis: Abdominal pain, History of small bowel obstruction Condition: Fair - Follow up/Referral - Patient Discharge Instructions - Post Discharge Activity
--- NOTE | 2019-11-08 03:54 | PDOC ---
History of Present Illness - General Chief Complaint: Pain, Acute Stated Complaint: ABD PAIN Time Seen by Provider: 11/08/19 03:26 History Source: Patient Exam Limitations: No Limitations - History of Present Illness Initial Comments: 11/08/19 04:06 69F PMH UC s/p diverting colostomy with manual ostomy complicated by multiple episodes of pouchitis BIBEMS for progressive abdominal pain since 8pm today. unable to pass stool through colostomy tonight. States this is similar to her prior episodes of obstruction. Denies n/v, f/c, cp/sob, dysuria. Pt has proactively stopped taking PO but is feeling dehydrated. Surgery done at [facility] years ago but surgeon has retired; follows with Dr. Ge Sparks for GI now. Pt did state she calls EMS to avoid ED waiting rooms. Past History - Medical History Allergies/Adverse Reactions: Allergies Allergy/AdvReac Type Severity Reaction Status Date / Time levofloxacin [From Levaquin] Allergy Verified 11/08/19 03:29 tetracycline [Tetracycline] AdvReac Intermediate Verified 11/08/19 03:29 NON ALLERGENS DRUG Allergy Uncoded 11/08/19 03:29 Home Medications: Ambulatory Orders Cholecalciferol (Vitamin D3) [Vitamin D3 -] 1,000 unit PO DAILY 09/26/19 Tamra 1 cap PO DAILY 09/26/19 L.acidoph,Paracasei, B.lactis [Probiotic] 1 each PO DAILY 09/26/19 [place]-3 Acid Ethyl Esters 1 gm PO DAILY 09/26/19 Tumeric 1 tab PO DAILY 09/26/19 Polyethylene Glycol 3350 [Miralax 119 gm Btl -] 17 gm PO PRN PRN 09/27/19 Potassium &Magnesium Aspartate [Ra Potassium-Magnesium Asp 250] 1 cap PO DAILY 09/27/19 Anemia: No Asthma: No Cancer: No Cardiac Disorders: No CVA: No COPD: No CHF: No Dementia: No Diabetes: No GI Disorders: Yes (ULCERATIVE COLITIS) Disorders: No HTN: No Hypercholesterolemia: No Liver Disease: No Seizures: No Thyroid Disease: No - Surgical History Abdominal Surgery: Yes (TOTAL COLECTOMY) Appendectomy: Yes (COLONOSCOPY) Cardiac Surgery: No Cholecystectomy: No Lung Surgery: No Neurologic Surgery: No Orthopedic Surgery: No - Psycho-Social/Smoking History Smoking History: Never smoked Have you smoked in the past 12 months: No Information on smoking cessation initiated: No - Substance Abuse Hx (Audit-C & DAST Scrn) How often the patient has a drink containing alcohol: Never Score: In Men: 4 or > Positive; In Women: 3 or > Positive: 0 Screen Result (Pos requires Nsg. Audit-10AR): Negative In the last yr the pt used illegal drug/Rx for NonMed reason: No Score: Yes response is considered Positive: 0 Screen Result (Positive result requires Nsg. DAST-10): Negative Review of Systems - Review of Systems Comments:: 11/08/19 07:50 CONSTITUTIONAL: Denies F / C HEENT: Denies headache, lightheadedness, dizziness, sore throat, rhinorrhea RESP: Denies SOB, cough CARD: Denies chest pain, palpitations GI: + abdominal pain. Denies N / V / D, inability to tolerate PO : Denies dysuria, hematuria, frequency NEURO: Denies numbness, tingling, weakness MSK: Denies back pain SKIN: Denies rashes *Physical Exam - Vital Signs Last Vital Signs Temp Pulse Resp BP Pulse Ox 98.8 F 100 H 20 143/83 96 11/08/19 03:26 11/08/19 03:26 11/08/19 03:26 11/08/19 03:26 11/08/19 03:26 - Physical Exam 11/08/19 07:51 GEN: NAD, comfortable, AAOx3. HEENT: NC/AT, EOMI, PERRL. No facial asymmetry. Normal voice. Supple neck w/ FROM. CV: S1/S2, RRR, no m/r/g LUNG: CTAB, no wheezes, crackles, rales, rhonchi. GI: Soft, ndnt, +BS, no guarding, no rebound. No masses. MSK: No obvious deformities of all extremities. SKIN: Warm, dry, no rashes appreciated. PSYCH: Normal mood and affect. NEURO: Moving all extremities well. ambulatory ED Treatment Course - LABORATORY CBC & Chemistry Diagram: 11/08/19 05:28 11/08/19 05:28 Medical Decision Making - Medical Decision Making 11/08/19 07:51 69F w/ UC s/p diverting colostomy with manual ostomy complicated by multiple episodes of pouchitis here for abdominal pain starting tonight and non-draining manual ostomy. Will eval for obstuction and infection. declined CT A/P but amenable to AXR labs fluids, tylenol admit 11/08/19 06:39 labs reviewed verbal sign out given to hospitalist, awaiting day shift attending name Discharge - Discharge Information Problems reviewed: Yes Clinical Impression/Diagnosis: Abdominal pain, History of small bowel obstruction Condition: Fair - Admission Yes - Follow up/Referral Referrals: Jose Daniel Gross MD [Primary Care Provider] - - Patient Discharge Instructions - Post Discharge Activity
[2019-11-08] MEDS ORDERED: ACETAMINOPHEN 1000 MG/100 ML VIAL (NON FORMULARY) IVPB ONE (03:55)
[2019-11-08] MEDS ORDERED: SODIUM CHLORIDE 0.9% 500 ML INFUS.BAG IV ONE (03:55)
--- OUTSIDE RECORDS SUMMARY | 2019-11-08 04:10 | XMS ---
:1950 Author Organization [facility] Support Name Relationship Address Phone RE, RETIRED Unavailable Unavailable Unavailable RE Unavailable Unavailable Unavailable DOMINIQUE STEPHENS [address] [facility] [place] [id number] Re-disclosure Warning The records that you are about to access may contain information from federally- assisted alcohol or drug abuse programs. If such information is present, then the following federally mandated warning applies: This information has been disclosed to you from records protected by federal confidentiality rules (42 CFR part 2). The federal rules prohibit you from making any further disclosure of this information unless further disclosure is expressly permitted by the written consent of the person to whom it pertains or as otherwise permitted by 42 CFR part 2. A general authorization for the release of medical or other information is NOT sufficient for this purpose. The Federal rules restrict any use of the information to criminally investigate or prosecute any alcohol or drug abuse patient.The records that you are about to access may contain highly sensitive health information, the redisclosure of which is protected by Article 27-F of the [facility] Public Health law. If you continue you may haveaccess to information: Regarding HIV / AIDS; Provided by facilities licensed or operated by the [facility] Office of Mental Health; or Provided by the [facility] Office for People With Developmental Disabilities. If such information is present, then the following [facility] mandated warning applies: This information has been disclosed to you from confidential records which are protected by state law. State law prohibits you from making any further disclosure of this information without the specific written consent of the person to whom it pertains, or as otherwise permitted by law. Any unauthorized further disclosure in violation of state law may result in a fine or chcf sentence or both. A general authorization for the release of medical or other information is NOT sufficient authorization for further disclosure. Insurance Providers Payer name Policy type Policy ID Covered Covered republican's Policy P jose / Coverage republican ID relationship to [employer] Inf ormation type geronimo BC PPO [id number] MEDICARE [id number] SP [id number] BC PPO [id number] Results ID Date Data Source [id number] 09/24/2019 01:10:00 PM EDT [facility] Name Value Range Interpretation Description Data Sup porting Code Source(s) Document(s ) SARS [facility] coronavirus 2 RNA This lab was ordered by [facility] and reported by [facility]. Procedure
[2019-11-08] MEDS ORDERED: ACETAMINOPHEN INJECTION 100 ML IVPB ONE (04:44)
[2019-11-08 05:38] LABS: BASO % 0.3 % (0-2.0); EOS % 0.4 % (0-4.5); HEMATOCRIT 44.1 % (32.4-45.2); HEMOGLOBIN 14.8 GM/dL (10.7-15.3); LYMPH % 16.5 % (8-40); MCH 30.6 pg (25.7-33.7); MCHC 33.6 g/dl (32.0-36.0); MEAN CELL VOLUME 91.3 fl (80-96); MONO % 7.9 % (3.8-10.2); NEUT % 74.9 % (42.8-82.8); PLATELET COUNT 195 K/MM3 (134-434); RBC 4.83 M/mm3 (3.60-5.2); RDW 13.8 % (11.6-15.6); WHITE BLOOD COUNT 8.9 K/mm3 (4.0-10.0)
[2019-11-08 06:01] LABS: ALBUMIN 4.5 g/dl (3.4-5.0); BILIRUBIN,TOTAL 0.6 mg/dL (0.2-1); CALCIUM 10.3 mg/dL (8.5-10.1); CREATININE 0.8 mg/dL (0.55-1.3); POTASSIUM 4.2 mmol/L (3.5-5.1); TOT PROT 8.4 g/dl (6.4-8.2)
[2019-11-08 06:04] LABS: BLOOD UREA NITROGEN 12.7 mg/dL (7-18)
[2019-11-08] MEDS ORDERED: POLYETHYLENE GLYCOL 3350 119 GM BTL PO PRN ×2 (09:05→12:06)
[2019-11-08] MEDS ORDERED: ACETAMINOPHEN 325 MG TABLET (FP) PO PRN ×2 (09:07→12:06)
[2019-11-08] MEDS: DEXTROSE 5%-0.45% SALINE 1,000 ML IV SCH ×2 (09:39→20:44)
--- NOTE | 2019-11-08 18:03 | HP ---
Admitting History and Physical - Primary Care Physician PCP: Jose Daniel Gross - Admission Chief Complaint: abdominal discomfort History of Present Illness: c/o abdominal discomfort and bloating for couple days, lost her appetuite and has been unable to eat. similar episodes in past, often resolved successfully with iv hydration has jo pouch; recent flex sigmoidoscopy 09.28.19 showed pouchitis and recurrent obstruction History Source: Patient Limitations to Obtaining History: No Limitations - Past Medical History Gastrointestinal: Yes: Ulcerative Colitis - Past Surgical History Past Surgical History: Yes: Colectomy (total colectomy with jo pouch creation approx. in 1980s), Tonsillectomy - Smoking History Smoking history: Never smoked Have you smoked in the past 12 months: No - Alcohol/Substance Use Hx Alcohol Use: No History of Substance Use: reports: None - Social History Usual Living Arrangement: Yes: With Spouse ADL: Independent Occupation: Retired: worked in [employer] lab for [employer] Social History of Recent Travel: No Home Medications - Allergies Allergies/Adverse Reactions: Allergies Allergy/AdvReac Type Severity Reaction Status Date / Time levofloxacin [From Levaquin] Allergy Verified 11/08/19 03:29 tetracycline [Tetracycline] AdvReac Intermediate Verified 11/08/19 03:29 NON ALLERGENS DRUG Allergy Uncoded 11/08/19 03:29 - Home Medications Home Medications: Ambulatory Orders Cholecalciferol (Vitamin D3) [Vitamin D3 -] 1,000 unit PO DAILY 09/26/19 Tamra 1 cap PO DAILY 09/26/19 L.acidoph,Paracasei, B.lactis [Probiotic] 1 each PO DAILY 09/26/19 [place]-3 Acid Ethyl Esters 1 gm PO DAILY 09/26/19 Tumeric 1 tab PO DAILY 09/26/19 Polyethylene Glycol 3350 [Miralax 119 gm Btl -] 17 gm PO PRN PRN 09/27/19 Potassium &Magnesium Aspartate [Ra Potassium-Magnesium Asp 250] 1 cap PO DAILY 09/27/19 Family Medical History Family Hx Cardiac Disorders: Mother Review of Systems - Review of Systems Constitutional: reports: Loss of Appetite, Unintentional Wgt. Loss. denies: Chills, Fever, Lethargy Eyes: reports: No Symptoms HENT: reports: No Symptoms Neck: reports: No Symptoms Cardiovascular: reports: No Symptoms Respiratory: reports: No Symptoms Gastrointestinal: reports: Abdominal Pain, Bloating, Constipation. denies: Nausea, Vomiting, Vomiting Blood Genitourinary: reports: No Symptoms Musculoskeletal: reports: No Symptoms Integumentary: reports: No Symptoms Neurological: reports: No Symptoms Endocrine: reports: No Symptoms Physical Examination Vital Signs: Vital Signs Temperature 98.6 F 11/08/19 16:12 Pulse Rate 87 11/08/19 16:12 Respiratory Rate 19 11/08/19 16:12 Blood Pressure 129/78 11/08/19 16:12 O2 Sat by Pulse Oximetry (%) 98 11/08/19 16:12 Constitutional: Yes: Well Nourished, Calm Eyes: Yes: Conjunctiva Clear, EOM Intact HENT: Yes: Normocephalic Neck: Yes: Trachea Midline Cardiovascular: Yes: Regular Rate and Rhythm Respiratory: Yes: CTA Bilaterally Gastrointestinal: Yes: Soft, Hyperactive Bowel Sounds, Other (mild tenderness over pouch) Musculoskeletal: Yes: WNL Extremities: Yes: WNL Edema: No Peripheral Pulses WNL: Yes Integumentary: Yes: WNL Labs: CBC, BMP 11/08/19 05:28 11/08/19 05:28 Imaging - Results X-ray: Report Reviewed (FUA with non specific bowel pattern) Problem List - Problems (1) Abdominal pain Code(s): R10.9 - UNSPECIFIED ABDOMINAL PAIN Qualifiers: Abdominal location: lower abdomen, unspecified Qualified Code(s): R10.30 - Lower abdominal pain, unspecified (2) Intermittent small bowel obstruction Code(s): K56.609 - UNSP INTESTNL OBST, UNSP TO PARTIAL VERSUS COMPLETE OBST (3) Pouchitis Code(s): K91.850 - POUCHITIS Assessment/Plan clear liquids iv hydration miralax as tolerated GI f/up requested
--- NOTE | 2019-11-08 20:49 | CON.GI ---
Consult Consult Specialty:: Gastroenterology Referred by:: Dr. Rianna Gross Reason for Consultation:: Malfunctioning ileostomy - History of Present Illness Chief Complaint: Minimal ileostomy output History of Present Illness: 69F reports that her ilesotomy output has diminished over the past 48 hours and stopped. She believes that she jammed it with papaya. She denies N/V or distension but has discomfort at the ileostomy. She had an ileoscopy with me on 09/28/19 for similar complaints and was found to have mild stricturing of her pouch anastomosis and pouchitis which I dilated with the scope. She felt full relief after a self administered short course of Cipro when I discouraged antibiotics and started her on Rowasa enemas. She was doing well until 48 hours ago. She received a dose of Miralax earlier today and tells me her ileostomy function is restored. - History Source History Provided By: Patient Limitations to Obtaining History: No Limitations - Past Medical History Gastrointestinal: Yes: Ulcerative Colitis (led to total colectomy and Irwin ileostomy - Dr. Hardwick @ [facility] Other (Irwin ileostomy pouchitis ) Musculoskeletal: Yes: Osteoarthritis - Past Surgical History Past Surgical History: Yes: Colectomy (total colectomy with Irwin pouch creation approx. in at [facility]), Tonsillectomy - Alcohol/Substance Use Hx Alcohol Use: No History of Substance Use: reports: None - Smoking History Smoking history: Never smoked Have you smoked in the past 12 months: No - Social History Usual Living Arrangement: With Spouse ADL: Independent Occupation: Retired: worked in research lab for [email or web address] Place of : Other ([place]) Came to [place]year[place] 25 History of Recent Travel: No Home Medications - Allergies Allergies/Adverse Reactions: Allergies Allergy/AdvReac Type Severity Reaction Status Date / Time levofloxacin [From Levaquin] Allergy Verified 11/08/19 03:29 tetracycline [Tetracycline] AdvReac Intermediate Verified 11/08/19 03:29 NON ALLERGENS DRUG Allergy Uncoded 11/08/19 03:29 - Home Medications Home Medications: Ambulatory Orders Cholecalciferol (Vitamin D3) [Vitamin D3 -] 1,000 unit PO DAILY 09/26/19 Tamra 1 cap PO DAILY 09/26/19 L.acidoph,Paracasei, B.lactis [Probiotic] 1 each PO DAILY 09/26/19 [place]-3 Acid Ethyl Esters 1 gm PO DAILY 09/26/19 Tumeric 1 tab PO DAILY 09/26/19 Polyethylene Glycol 3350 [Miralax 119 gm Btl -] 17 gm PO PRN PRN 09/27/19 Potassium &Magnesium Aspartate [Ra Potassium-Magnesium Asp 250] 1 cap PO DAILY 09/27/19 Family Medical History Family Hx Cancer: Father ( 72 of colon cancer), Brother (lung cancer) Family Hx Dementia: Mother ( 87 of CVA) Review of Systems - Review of Systems Constitutional: reports: No Symptoms Eyes: reports: No Symptoms HENT: reports: No Symptoms Neck: reports: No Symptoms Cardiovascular: reports: No Symptoms Respiratory: reports: No Symptoms Gastrointestinal: reports: Abdominal Pain, Bloating Genitourinary: reports: No Symptoms Musculoskeletal: reports: Joint Pain Physical Exam-GI Vital Signs: Vital Signs Temperature 98.6 F 11/08/19 16:12 Pulse Rate 87 11/08/19 16:12 Respiratory Rate 19 11/08/19 16:12 Blood Pressure 129/78 11/08/19 16:12 O2 Sat by Pulse Oximetry (%) 98 11/08/19 16:12 CBC,CMP WBC 8.9 K/mm3 (4.0-10.0) 11/08/19 05:28 RBC 4.83 M/mm3 (3.60-5.2) 11/08/19 05:28 Hgb 14.8 GM/dL (10.7-15.3) 11/08/19 05:28 Hct 44.1 % (32.4-45.2) D 11/08/19 05:28 MCV 91.3 fl (80-96) 11/08/19 05:28 MCH 30.6 pg (25.7-33.7) 11/08/19 05:28 MCHC 33.6 g/dl (32.0-36.0) 11/08/19 05:28 RDW 13.8 % (11.6-15.6) 11/08/19 05:28 Plt Count 195 K/MM3 (134-434) D 11/08/19 05:28 MPV 9.0 fl (7.5-11.1) 11/08/19 05:28 Absolute Neuts (auto) 6.6 K/mm3 (1.5-8.0) 11/08/19 05:28 Neutrophils % 74.9 % (42.8-82.8) D 11/08/19 05:28 Lymphocytes % 16.5 % (8-40) D 11/08/19 05:28 Monocytes % 7.9 % (3.8-10.2) 11/08/19 05:28 Eosinophils % 0.4 % (0-4.5) 11/08/19 05:28 Basophils % 0.3 % (0-2.0) 11/08/19 05:28 Nucleated RBC % 0 % (0-0) 11/08/19 05:28 Sodium 138 mmol/L (136-145) 11/08/19 05:28 Potassium 4.2 mmol/L (3.5-5.1) 11/08/19 05:28 Chloride 104 mmol/L (98-107) 11/08/19 05:28 Carbon Dioxide 29 mmol/L (21-32) 11/08/19 05:28 Anion Gap 4 MMOL/L (8-16) L 11/08/19 05:28 BUN 12.7 mg/dL (7-18) 11/08/19 05:28 Creatinine 0.8 mg/dL (0.55-1.3) 11/08/19 05:28 Est GFR (CKD-EPI)AfAm 85.97 11/08/19 05:28 Est GFR (CKD-EPI)NonAf 74.17 11/08/19 05:28 Random Glucose 101 mg/dL (74-106) 11/08/19 05:28 Lactic Acid 1.0 mmol/L (0.4-2.0) 11/08/19 05:28 Calcium 10.3 mg/dL (8.5-10.1) H 11/08/19 05:28 Total Bilirubin 0.6 mg/dL (0.2-1) 11/08/19 05:28 AST 21 U/L (15-37) 11/08/19 05:28 ALT 24 U/L (13-61) 11/08/19 05:28 Alkaline Phosphatase 97 U/L (45-117) 11/08/19 05:28 Total Protein 8.4 g/dl (6.4-8.2) H 09/22/20 05:28 Albumin 4.5 g/dl (3.4-5.0) 11/08/19 05:28 Current Medications Generic Name Dose Route Start Last Admin Trade Name Autumn PRN Reason Stop Dose Admin Acetaminophen 650 mg 11/08/19 12:06 Tylenol - PO Q6H PRN PAIN LEVEL 1-5 Dextrose/Sodium Chloride 1,000 mls @ 75 mls/hr 11/08/19 09:15 11/08/19 20:44 D5-1/2ns - IV 75 mls/hr ASDIR AJAY Administration Polyethylene Glycol 17 gm 11/08/19 12:06 11/08/19 17:38 Miralax (For Daily Use) - PO 17 grams DAILY PRN Administration CONSTIPATION Constitutional: Yes: Anxious, Thin Eyes: Yes: Conjunctiva Clear HENT: Yes: Atraumatic Neck: Yes: Trachea Midline Cardiovascular: Yes: Regular Rate and Rhythm Respiratory: Yes: CTA Bilaterally Gastrointestinal Inspection: Yes: Scars (long midline and RLQ incisions), Other (functional RLQ ileostomy which is patent on digital examination) ...Auscultate: Yes: Normoactive Bowel Sounds ...Palpate: Yes: Soft, Other (nontender) Edema: No Neurological: Yes: Alert, Oriented Labs: CBC, BMP 11/08/19 05:28 11/08/19 05:28 Imaging - Results X-ray: Image Reviewed (no obstruction) Problem List - Problems (1) Ileostomy dysfunction Code(s): K94.13 - ENTEROSTOMY MALFUNCTION (2) Abdominal pain Code(s): R10.9 - UNSPECIFIED ABDOMINAL PAIN Qualifiers: Abdominal location: lower abdomen, unspecified Qualified Code(s): R10.30 - Lower abdominal pain, unspecified (3) Pouchitis Code(s): K91.850 - POUCHITIS (4) Ulcerative colitis with complication Code(s): K51.919 - ULCERATIVE COLITIS, UNSP WITH UNSPECIFIED COMPLICATIONS Assessment/Plan Impression: - Resolved occlusion of ileostomy - S/P total colectomy and Irwin pouch creation at [facility] 1980s - Irwin pouchitis Plan: - I advised Autumn to take Miralax daily instead of prn - Rowasa enemas - Advance diet - Can discharge if tolerated
[2019-11-08] MEDS: POLYETHYLENE GLYCOL 3350 119 GM BTL PO SCH (21:33)
--- NOTE | 2019-11-09 09:21 | PN ---
Progress Note (short form) - Note Progress Note: Vital Signs Period Temp Pulse Resp BP Sys/Sawant Pulse Ox Last 24 Hr 97.8 F-98.6 F 74-87 19-19 129-135/54-78 98-98 s1s2 rrr lungs cta abd soft mild lower abdominal tenderness +BS no edema mild clear fluid from pouch 69 yo lady admitted for Irwin pouch dysfuction better with iv hydration, if tolerates food without obstruction will dc home today Problem List - Problems (1) Abdominal pain Code(s): R10.9 - UNSPECIFIED ABDOMINAL PAIN Qualifiers: Abdominal location: lower abdomen, unspecified Qualified Code(s): R10.30 - Lower abdominal pain, unspecified (2) Intermittent small bowel obstruction Code(s): K56.609 - UNSP INTESTNL OBST, UNSP TO PARTIAL VERSUS COMPLETE OBST (3) Pouchitis Code(s): K91.850 - POUCHITIS
[2019-11-09] MEDS: MESALAMINE 4 GM/60 ML ENEMA RC SCH (09:56)
[2019-11-09] MEDS: POLYETHYLENE GLYCOL 3350 119 GM BTL PO SCH ×2 (09:56→21:08)
[2019-11-09] MEDS: DEXTROSE 5%-0.45% SALINE 1,000 ML IV SCH (09:56)
[2019-11-10] MEDS: DEXTROSE 5%-0.45% SALINE 1,000 ML IV SCH ×2 (03:48→12:59)
[2019-11-10 07:34] VITALS: TEMP 98.4
--- NOTE | 2019-11-10 08:16 | DS ---
Physical Examination Vital Signs: Vital Signs Temperature 98.4 F 11/10/19 06:00 Pulse Rate 74 11/10/19 06:00 Respiratory Rate 18 11/10/19 06:00 Blood Pressure 147/68 11/10/19 06:00 O2 Sat by Pulse Oximetry (%) 95 11/10/19 06:00 Constitutional: Yes: Well Nourished, Calm Eyes: Yes: EOM Intact HENT: Yes: Normocephalic Neck: Yes: Trachea Midline Cardiovascular: Yes: Regular Rate and Rhythm Respiratory: Yes: CTA Bilaterally Gastrointestinal: Yes: Normal Bowel Sounds, Soft, Tenderness (mild lower abdominal) Musculoskeletal: Yes: WNL Extremities: Yes: WNL Labs: CBC, BMP 11/08/19 05:28 11/08/19 05:28 Discharge Summary Problems reviewed: Yes Reason For Visit: ABD PAIN Current Active Problems Abdominal pain (Acute) History of small bowel obstruction (Acute) Ileostomy dysfunction (Acute) Hospital Course: 69 yo lady came for c/o abdominal discomfort and bloating for couple days. PMH of Ulcerative Colitis s/p total colectomy with jo pouch creation approx. in 1980s FUA showed non specific pattern, pt clinically had partial small bowel obstruction. Improved with iv hydration and fasting. currently moving her bowels, tolerating regular diet, stable to la home with outpt follow up. Condition: Fair - Instructions Referrals: Jose Daniel Gross MD [Primary Care Provider] - Disposition: HOME - Home Medications Comprehensive Discharge Medication List: Ambulatory Orders Cholecalciferol (Vitamin D3) [Vitamin D -] 1,000 unit PO DAILY 09/26/19 Tamra 1 cap PO DAILY 09/26/19 L.acidoph,Paracasei, B.lactis [Probiotic] 1 each PO DAILY 09/26/19 Prosperity-3 Acid Ethyl Esters 1 gm PO DAILY 09/26/19 Tumeric 1 tab PO DAILY 09/26/19 Polyethylene Glycol 3350 [Miralax 119 gm Btl -] 17 gm PO PRN PRN 09/27/19 Potassium &Magnesium Aspartate [Ra Potassium-Magnesium Asp 250] 1 cap PO DAILY 09/27/19 Mesalamine Enema [Rowasa Enema -] 4 gm RC DAILY enema 11/10/19
[2019-11-10 09:57] VITALS: BMI 20.8
[2019-11-10] MEDS: POLYETHYLENE GLYCOL 3350 119 GM BTL PO SCH (12:59)
[2019-11-10] MEDS: MESALAMINE 4 GM/60 ML ENEMA RC SCH (12:59)
[2019-11-10 15:16] VITALS: BP 140/70; PULSE 87
== END 2019-11-10 15:52 | disposition home or self-care (01) ==
LOC: JER 03:23 → JERBED 06:03 → UNDOADMOB 06:03 → INTOOBSV 06:03 → J7W 16:18 → JERBED 16:18 → J7W 11-09 11:57
PROVIDERS: ADMIT Internal Medicine; ATTEND Internal Medicine
PROC: 3E033NZ Introduction of Analgesics, Hypnotics, Sedatives into Peripheral Vein, Percutaneous Approach (ICD-10-PCS; principal; 2019-11-09)
PROC: 3E0337Z Introduction of Electrolytic and Water Balance Substance into Peripheral Vein, Percutaneous Approach (ICD-10-PCS; 2019-11-09)
DX: R10.9 Unspecified abdominal pain (principal); R10.30 Lower abdominal pain, unspecified; K56.609 Unspecified intestinal obstruction, unspecified as to partial versus complete obstruction; K91.850 Pouchitis; K51.90 Ulcerative colitis, unspecified, without complications; Z98.0 Intestinal bypass and anastomosis status; Z88.8 Allergy status to other drugs, medicaments and biological substances
CPT/HCPCS: 36415; 74019-TC-FY; 80053; 83605; 85025; 99285-25; G0378; J0131; U0003

== ENCOUNTER 2019-11-26 18:12 | Emergency (ER) | payer BC ==
[2019-11-26 18:35] VITALS: TEMP 98; BMI 21.6
[2019-11-26] MEDS ORDERED: LACTATED RINGERS SOLUTION 1000 ML INFUS.BAG IV ONE (19:13)
--- OUTSIDE RECORDS SUMMARY | 2019-11-26 19:27 | XMS ---
:1950 Author Organization [facility] Support Name Relationship Address Phone RE, RETIRED Unavailable Unavailable Unavailable RE Unavailable Unavailable Unavailable DOMINIQUE STEPHENS [address] [place] [address] DOMINIQUE STEPHENS Spouse [address] [place] [place] [address] Re-disclosure Warning The records that you are [...] is protected by Article 27-F of the [place] Public [employer] law. If you continue you may haveaccess to information: Regarding HIV / AIDS; Provided by facilities licensed or operated by the [place] Office of Mental Health; or Provided by the [facility] Office for People With Developmental Disabilities. If such information is present, then the following [place] mandated warning applies: This information has been [...] law may result in a fine or alf sentence or both. A general authorization for the release of medical or other information is NOT sufficient authorization for further disclosure. Insurance Providers Payer name Policy type Policy ID Covered Covered constitution party's Policy P jose / Coverage constitution party ID relationship to Maloney Inf ormation type maloney BC PPO [id number] MEDICARE [id number] SP [id number] BC PPO [id number] Results ID Date Data Source [id number] 11/08/2019 08:00:00 AM EDT [facility] Name Value Range Interpretation Description Data Sup porting Code Source(s) Document(s ) SARS [facility] coronavirus 2 RNA This lab was ordered by [facility] and reported by [facility]. ID Date Data Source [id number] 09/24/2019 01:10:00 PM EDT [facility] Name Value Range Interpretation Description Data Sup porting Code Source(s) Document(s ) SARS [facility] coronavirus 2 RNA This lab was ordered by [facility] and reported by [facility]. Procedure
[2019-11-26 19:45] LABS: BASO % 0.5 % (0-2.0); EOS % 1.6 % (0-4.5); HEMATOCRIT 38.4 % (32.4-45.2); HEMOGLOBIN 12.9 GM/dL (10.7-15.3); LYMPH % 22.9 % (8-40); MCHC 33.6 g/dl (32.0-36.0); MEAN CELL VOLUME 92.3 fl (80-96); MEAN PLT VOLUME 9.6 fl (7.5-11.1); MONO % 10.3 % (3.8-10.2); NEUT % 64.7 % (42.8-82.8); PLATELET COUNT 180 K/MM3 (134-434); RBC 4.16 M/mm3 (3.60-5.2); RDW 13.9 % (11.6-15.6); WHITE BLOOD COUNT 5.6 K/mm3 (4.0-10.0)
--- NOTE | 2019-11-26 19:49 | PDOC ---
History of Present Illness - General History Source: Patient - History of Present Illness Initial Comments: 11/26/19 20:00 69F w/hx ulcerative colitis, diverting colostomy w/manual ostomy p/w one day of abdominal cramping. She reports multiple similar prior episodes associated with dehydration. She reports prior bowel obstructions. She reports typically receiving x2 fluid boluses and then often being able to pass stool. She reports that all stool passes via ostomy, but having difficulty today similar to prior episodes. She denies any vomiting, fevers, chills, weakness, confusion. GI: Dr. Sparks <Oni Martins - Last Filed: 11/27/19 00:44> <Manda Sierra - Last Filed: 11/30/19 09:21> - General Chief Complaint: Pain Stated Complaint: ABDOMINAL PAIN Time Seen by Provider: 11/26/19 19:13 Past History - Medical History Anemia: No Asthma: No Cancer: No Cardiac Disorders: No CVA: No COPD: No CHF: No Dementia: No Diabetes: No GI Disorders: Yes (ULCERATIVE COLITIS) Disorders: No HTN: No Hypercholesterolemia: No Liver Disease: No Seizures: No Thyroid Disease: No - Surgical History Abdominal Surgery: Yes (TOTAL COLECTOMY) Appendectomy: Yes (COLONOSCOPY) Cardiac Surgery: No Cholecystectomy: No Lung Surgery: No Neurologic Surgery: No Orthopedic Surgery: No - Immunization History Immunization Up to Date: No - Psycho-Social/Smoking History Smoking History: Never smoked Have you smoked in the past 12 months: No <Oni Martins - Last Filed: 11/27/19 00:44> <Manda Sierra - Last Filed: 11/30/19 09:21> - Medical History Allergies/Adverse Reactions: Allergies Allergy/AdvReac Type Severity Reaction Status Date / Time levofloxacin [From Levaquin] Allergy Verified 11/26/19 19:01 tetracycline [Tetracycline] AdvReac Intermediate Verified 11/26/19 19:01 NON ALLERGENS DRUG Allergy Uncoded 11/26/19 19:01 Home Medications: Ambulatory Orders NK [No Known Home Medication] 11/26/19 Review of Systems - Review of Systems Able to Perform ROS?: Yes Comments:: 11/26/19 19:51 GENERAL/CONSTITUTIONAL: No fever or chills. No weakness. HEAD, EYES, EARS, NOSE AND THROAT: No change in vision. No ear pain or disch arge. No sore throat. CARDIOVASCULAR: No chest pain or shortness of breath RESPIRATORY: No cough, wheezing, or hemoptysis. GASTROINTESTINAL: Abdominal cramping. No nausea, vomiting, diarrhea or consti pation. GENITOURINARY: No dysuria, frequency, or change in urination. MUSCULOSKELETAL: No joint or muscle swelling or pain. No neck or back pain. SKIN: No rash NEUROLOGIC: No headache, vertigo, loss of consciousness, or change in strength/sensation. ENDOCRINE: No increased thirst. No abnormal weight change HEMATOLOGIC/LYMPHATIC: No anemia, easy bleeding, or history of blood clots. ALLERGIC/IMMUNOLOGIC: No hives or skin allergy. <Oni Martins - Last Filed: 11/27/19 00:44> *Physical Exam - Vital Signs Last Vital Signs Temp Pulse Resp BP Pulse Ox 98.0 F 86 18 144/82 99 11/26/19 18:19 11/26/19 18:19 11/26/19 18:19 11/26/19 18:19 11/26/19 18:19 - Physical Exam 11/26/19 19:52 GENERAL: Awake, alert, and fully oriented, in no acute distress HEAD: No signs of trauma, normocephalic, atraumatic EYES: PERRLA, EOMI, sclera anicteric, conjunctiva clear ENT: Auricles normal inspection, hearing grossly normal, nares patent, oropharynx clear without exudates. Moist mucosa NECK: Normal ROM, supple, no lymphadenopathy, JVD, or masses LUNGS: No distress, speaks full sentences, clear to auscultation bilaterally HEART: Regular rate and rhythm, normal S1 and S2, no murmurs, rubs or gallops, peripheral pulses normal and equal bilaterally. ABDOMEN: Soft, nontender, normoactive bowel sounds. No guarding, no rebound. No masses EXTREMITIES : Normal inspection, Normal range of motion, no edema. No clubbing or cyanosis NEUROLOGICAL: Cranial nerves II through XII grossly intact. Normal speech, normal gait, no focal sensorimotor deficits SKIN: Warm, Dry, normal turgor, no rashes or lesions noted <Oni Martins - Last Filed: 11/27/19 00:44> - Vital Signs Last Vital Signs Temp Pulse Resp BP Pulse Ox 98.0 F 78 18 138/80 98 11/26/19 18:19 11/27/19 01:06 11/27/19 01:06 11/27/19 01:06 11/27/19 01:06 <Manda Sierra - Last Filed: 11/30/19 09:21> ED Treatment Course - LABORATORY CBC & Chemistry Diagram: 11/26/19 19:30 11/26/19 19:30 <Oni Martins - Last Filed: 11/27/19 00:44> - LABORATORY CBC & Chemistry Diagram: 11/26/19 19:30 11/26/19 19:30 - ADDITIONAL ORDERS Additional order review: 11/26/19 19:30 RBC 4.16 MCV 92.3 MCHC 33.6 RDW 13.9 MPV 9.6 Neutrophils % 64.7 Lymphocytes % 22.9 D Monocytes % 10.3 H Eosinophils % 1.6 D Basophils % 0.5 - Medications Given in the ED: ED Medications Discontinued Medications Generic Name Dose Route Start Last Admin Trade Name Freq PRN Reason Stop Dose Admin Lactated Ringer's 1,000 ml 11/26/19 19:13 11/26/19 19:46 Lactated Ringers Solution IV 11/26/19 19:14 1,000 ml NOW ONE Administration Lactated Ringer's 1,000 ml 11/27/19 00:22 11/27/19 00:23 Lactated Ringers Solution IV 11/27/19 00:23 1,000 ml ONCE ONE Administration <Manda Sierra - Last Filed: 11/30/19 09:21> Medical Decision Making - Medical Decision Making 11/26/19 19:49 69F w/hx UC, extensive bowel altering surgery w/internal colostomy pouch, multiple episodes pouchitis p/w one day of difficulty passing stool via access port. Ddx obstruction given acute onset pain w/extensive abdominal surgeries. Plan: 2L LR CBC CMP Lipase Lactate Trop PT/INR, APTT Type and Screen CT abdomen/pelvis w/po and IV contrast UA Urine culture Dispo: Pending imaging --- Family contact - Mr. Viramontes () [phone] --- <Oni Martins - Last Filed: 11/27/19 00:44> Discharge - Discharge Information Problems reviewed: Yes - Admission No <Oni Martins - Last Filed: 11/27/19 00:44> - Discharge Information Problems reviewed: Yes <Manda Sierra - Last Filed: 11/30/19 09:21> - Discharge Information Clinical Impression/Diagnosis: Abdominal pain, History of small bowel obstruction Condition: Stable
[2019-11-26 20:02] LABS: INR 0.98 (0.83-1.09); PROTHROMBIN TIME (PATIENT) 11.6 SEC (9.7-13.0)
[2019-11-26 20:05] LABS: ACTIVATED PTT 28.4 SECONDS (25.2-36.5)
[2019-11-26 20:16] LABS: ALBUMIN 3.7 g/dl (3.4-5.0); ALK PHOS 75 U/L (45-117); ANION GAP 4 MMOL/L (8-16); BILIRUBIN,TOTAL 0.6 mg/dL (0.2-1); CALCIUM 9.2 mg/dL (8.5-10.1); CHLORIDE 109 mmol/L (98-107); CO2 29 mmol/L (21-32); CREATININE 0.5 mg/dL (0.55-1.3); GLUCOSE,RANDOM 81 mg/dL (74-106); LIPASE 117 U/L (73-393); POTASSIUM 3.9 mmol/L (3.5-5.1); SGOT/AST 21 U/L (15-37); SGPT/ALT 21 U/L (13-61); SODIUM 142 mmol/L (136-145); TOT PROT 6.9 g/dl (6.4-8.2)
--- NOTE | 2019-11-26 21:01 | PDOC ---
Documentation entered by Berhane Beasley SCRIBE, acting as scribe for Manda Sierra MD. Manda Sierra MD: This documentation has been prepared by the korinibeRamos Aaron, SCRIBE, under my direction and personally reviewed by me in its entirety. I confirm that the documentation accurately reflects all work, treatment, procedures, and medical decision making performed by me. Attending Attestation - Resident Resident Name: LakshmiOni - ED Attending Attestation I have performed the following: I have examined & evaluated the patient, The case was reviewed & discussed with the resident, I agree w/resident's findings & plan - HPI HPI: 11/26/19 20:53 HPI 69 year old female with a significant PMH of ulcerative colitis and diverting colostomy with ostomy who presents to the emergency department for one day of abdominal cramping. Patient reports a generalized abdominal pain that feels similar to bowel obstructions she has had in the past (associated with dehydration). She reports that normally all stool passes via ostomy, but is having difficulty today. In 10/2019, she was admitted for partial SBO, Ulcerative Colitis s/p total colectomy with jo pouch creation approx. in Patient denies confusion fever, chills, chest pain, SOB, palpitation, dizziness, weakness Allergies: levofloxacin, tetracycline, Non allergens drug Past Medical History: ulcerative colitis, diverting colostomy w/manual ostomy. Bowel obstructions associated with dehydration. Social history: Lives with family. No tobacco use. Surgical history: total colectomy, appendectomy, colonoscopy Meds: as documented in EMR PMD: Dr. Sandra Campa 11/26/19 22:01 - Physicial Exam PE: 11/26/19 21:00 Agree with the resident's HPI and PE as documented in the electronic medical record. NAD, well appearing, EOMI, PERRL, nl conjunctiva, anicteric; neck supple. lungs clear, RRR, abdomen soft , diffuse abdominal tenderness, nondistended. anterior abdominal surgical scars present. Back nontender. MCKOY x4, no focal neuro deficits. No peripheral edema. normal color for ethnicity, WWP. 11/26/19 22:01 - Medical Decision Making 11/26/19 21:00 Vital Signs Temp Pulse Resp BP Pulse Ox 98.0 F 86 18 144/82 99 11/26/19 18:19 11/26/19 18:19 11/26/19 18:19 11/26/19 18:19 11/26/19 18:19 11/26/19 21:00 DDx abdominal pain: Renal colic, biliary colic, metabolic/electrolyte derangements. GERD, PUD, esophageal spasm, pancreatitis, hepatitis, constipation, colitis, gastroenteritis, cholecystitis, UTI, pyelonephritis, ileus, SBO, medication side effect, hernia, appendicitis, diverticulitis, mesenteric ischemia. msk strain, mesenteric adenitis, psoas abscess. vitals reviewed wnl. diffuse AP h/o SBO will do CT a/p, PO and IV contrast to eval for obstruction, intra abdominal process 11/26/19 22:02 labs and lytes wnl, reassuring normal lfts, lipase. given IVF here tolerated her oral contrast 11/26/19 22:03 pocus bowel at bedside with dilated loops of bowel, aperistalsis CT a/p to confirm likely sbo s/o to Dr ray pending imaging results, reeval, ultimate dispo Discharge - Discharge Information Problems reviewed: Yes Clinical Impression/Diagnosis: Abdominal pain, History of small bowel obstruction Condition: Stable - Follow up/Referral - Patient Discharge Instructions - Post Discharge Activity
[2019-11-27] MEDS ORDERED: LACTATED RINGERS SOLUTION 1000 ML INFUS.BAG IV ONE (00:22)
[2019-11-27 01:07] VITALS: BP 138/80; PULSE 78
--- NOTE | 2019-11-28 00:36 | PDOC ---
*Physical Exam - Vital Signs Last Vital Signs Temp Pulse Resp BP Pulse Ox 98.0 F 78 18 138/80 98 11/26/19 18:19 11/27/19 01:06 11/27/19 01:06 11/27/19 01:06 11/27/19 01:06 ED Treatment Course - LABORATORY CBC & Chemistry Diagram: 11/26/19 19:30 11/26/19 19:30 - ADDITIONAL ORDERS Additional order review: 11/26/19 19:30 RBC 4.16 MCV 92.3 MCHC 33.6 RDW 13.9 MPV 9.6 Neutrophils % 64.7 Lymphocytes % 22.9 D Monocytes % 10.3 H Eosinophils % 1.6 D Basophils % 0.5 - Medications Given in the ED: ED Medications Discontinued Medications Generic Name Dose Route Start Last Admin Trade Name Autumn PRN Reason Stop Dose Admin Lactated Ringer's 1,000 ml 11/26/19 19:13 11/26/19 19:46 Lactated Ringers Solution IV 11/26/19 19:14 1,000 ml NOW ONE Administration Lactated Ringer's 1,000 ml 11/27/19 00:22 11/27/19 00:23 Lactated Ringers Solution IV 11/27/19 00:23 1,000 ml ONCE ONE Administration Medical Decision Making - Medical Decision Making 11/28/19 00:[address] Taylor - concern for SBO on CT scan. Pt discharged last night. Pt was seen by Dr Mac last night. Informed Dr Mac who stated she would contact pt and inform her of results. Discharge - Discharge Information Problems reviewed: Yes Clinical Impression/Diagnosis: Abdominal pain, History of small bowel obstruction Disposition: HOME - Follow up/Referral - Patient Discharge Instructions Patient Printed Discharge Instructions: DI for Abdominal Pain-Adult Additional Instructions: You were seen in the ER for abdominal pain. Your bloodwork and CT scans were normal - without signs of bowel obstruction. Follow up with your gastrointestinal doctor as soon as possible, in the next 2-3 days. Return to the ER if you are unable to eat, have worsening pain, high fevers, chest pain, or difficulty breathing. - Post Discharge Activity
== END 2019-11-27 01:12 | disposition home or self-care (01) ==
LOC: JER 18:12
DX: R10.9 Unspecified abdominal pain (principal)
CPT/HCPCS: 36415; 74177-TC; 80053; 83605; 83690; 84484; 85025; 85610; 85730; 99285-25; Q9967